=== PATIENT | female | born 1995 | race Caucasian/White ===

== ENCOUNTER 2021-10-11 14:01 | Emergency (ER) | payer OTHER ==
[2021-10-11 15:03] LABS: BASOPHIL 1.2 % (0-2); EOSINOPHIL 7.3 % (0-5); HCT 47.5 % (37.0-47.0); HGB 16.1 g/dl (12.5-16.0); LYMPHOCYTE 31.9 % (15-48); MCH 32.8 pg (25.0-31.0); MCHC 33.9 g/dL (32.0-36.0); MCV 96.7 fL (78.0-100.0); MONOCYTE 6.3 % (0-12); MPV 11.4 fL (6.0-9.5); NEUTROPHIL 52.3 % (41-80); NRBC 0; PLT 368 K/uL (150-400); RBC 4.91 M/uL (4.20-5.40); RDW 12.5 % (11.5-14.0); WBC 9.7 K/uL (4.0-10.5)
[2021-10-11 15:04] LABS: BILIRUBIN NEGATIVE (NEGATIVE); BLOOD NEGATIVE Ery/uL (NEGATIVE); CLARITY CLEAR (CLEAR); COLOR YELLOW (YELLOW); GLUCOSE (U) NORMAL (NORMAL); LEUKOCYTES NEGATIVE Leu/uL (NEGATIVE); NITRITE NEGATIVE (NEGATIVE); PROTEIN NEGATIVE (NEGATIVE); UROBILINOGEN 0.2 mg/dL (0.2-1.0)
[2021-10-11 15:14] LABS: ALBUMIN 4.5 g/dL (3.4-5.0); BILIRUBIN - TOTAL 0.4 mg/dL (0.2-1.0); POTASSIUM 4.1 mmol/L (3.5-5.1); TOTAL PROTEIN 8.5 g/dL (6.4-8.2)
== END 2021-10-11 16:23 | disposition home or self-care (01) ==
LOC: FER 14:01
PROVIDERS: Nurse Practitioner Family
DX: R10.31 Right lower quadrant pain (principal); R11.10 Vomiting, unspecified; Z88.2 Allergy status to sulfonamides
CPT/HCPCS: 36415; 80053; 81003; 85025